=== PATIENT | female | born 1960 | race Caucasian/White ===

== ENCOUNTER 2019-04-17 17:29 | Emergency (ER) | payer BC ==
[2019-04-17 17:51] VITALS: BP 122/52
--- NOTE | 2019-04-17 18:00 | UC ---
Hand/Wrist HPI - HPI Summary HPI Summary: Fell down a few steps approximately one hour ago. Thinks she sort of tumbled down, she did not pass out. She hit her head but had no LOC, no epistaxis. She complains of right elbow and right wrist pain. - History Of Current Complaint Chief Complaint: UCUpperExtremity Stated Complaint: RIGHT WRIST INJURY Time Seen by Provider: 04/17/19 17:46 Hx Obtained From: Patient ?: No Onset/Duration: Sudden Onset Severity Initially: Moderate Severity Currently: Moderate Pain Intensity: 7 Character Of Pain: Sharp, Aching Aggravating Factor(s): Movement, Flexion, Extension Alleviating Factor(s): Nothing Associated Signs And Symptoms: Positive: Negative - Allergies/Home Medications Allergies/Adverse Reactions: Allergies Allergy/AdvReac Type Severity Reaction Status Date / Time morphine Allergy Headache Verified 04/17/19 17:38 Home Medications: Home Medications Aspirin/Acetaminophen/Caffeine [Excedrin Migraine Caplet] 1 each PO PRN [History] Calcium Carbonate [Calcium] 500 mg PO DAILY 04/17/19 [History Confirmed 04/17/19 ] Cyclobenzaprine TAB* [Flexeril 10 MG TAB*] 10 mg PO TID PRN 04/17/19 [History Confirmed 04/17/19] Vitamin E 100 unit PO DAILY 04/17/19 [History Confirmed 04/17/19] PMH/Surg Hx/FS Hx/Imm Hx Previously Healthy: Yes Cardiovascular History: Hypertension Neurological History: Migraine - Surgical History Surgical History: Yes Surgery Procedure, Year, and Place: APPENDECTOMY - 1978. TUBAL LIGATION - 1987. HYSTERECTOMY - 2010. CSP -FUSION - 2005. GALLBLADDER - 2010. LUMBAR SPINAL FUSION, AUG 2018 - Family History Known Family History: Positive: None - Social History Alcohol Use: None Substance Use Type: None Smoking Status (MU): Never Smoked Tobacco - Immunization History Most Recent Tetanus Shot: UNSURE Review of Systems All Other Systems Reviewed And Are Negative: Yes Motor: Positive: Decreased ROM Neurovascular: Positive: Negative Musculoskeletal: Positive: Decreased ROM - Right wrist with pain on felxion/ extension. Is Patient Immunocompromised?: No Physical Exam Triage Information Reviewed: Yes Appearance: Well-Appearing, No Pain Distress, Well-Nourished Vital Signs: Initial Vital Signs Temp 98.4 F 04/17/19 17:43 Pulse 90 04/17/19 17:43 Resp 18 04/17/19 17:43 BP 122/52 04/17/19 17:43 Pulse Ox 100 04/17/19 17:43 Vital Signs Reviewed: Yes Eyes: Positive: Conjunctiva Clear - PERRLA, EOMI ENT: Positive: Hearing grossly normal, Pharynx normal, TMs normal, Uvula midline Neck exam: Normal Neck: Positive: Supple, Nontender, No Lymphadenopathy Respiratory: Positive: Chest non-tender, Lungs clear, Normal breath sounds, No respiratory distress, No accessory muscle use Cardiovascular: Positive: RRR, No Murmur, Pulses Normal, Brisk Capillary Refill Abdomen Description: Positive: Nontender, No Organomegaly, Soft Bowel Sounds: Positive: Present Musculoskeletal: Positive: Other: - Right wrist with pain on lifting and on flexion/extension, mild swelling present. Difficult to see if there is a deformity. Neurological: Positive: Alert, Muscle Tone Normal, Other: - CN II-XII intact, good leg strength and arm strength against resistance. Reflexes +2 at the knee. Psychological Exam: Normal Skin Exam: Normal Hand/Wrist Course/Dx - Course Course Of Treatment: Right elbow: Negative as interpreted by Dr. Beal and myself. Right wrist: Negative as interpreted by Dr. Beal and myself. The cock up splint is applied by the nurse and oog neurosensation, cap refill after splint application. Patient can take Tylenol or Motrin for pain elevate and ice as much as possible to follow-up with an orthopedist if no improvement in 2 or 3 days. She is going to call here tomorrow for results of the x-rays. - Differential Dx/Diagnosis Provider Diagnosis: Contusion of wrist, right, Contusion of head, Contusion of elbow, right Discharge - Sign-Out/Discharge Documenting (check all that apply): Patient Departure All imaging exams completed and their final reports reviewed: No - Discharge Plan Condition: Fair Disposition: HOME Patient Education Materials: Wrist Injury (ED) Referrals: Mi Tejeda MD [Primary Care Provider] - Jhoan Moya MD [Medical Doctor] - Additional Instructions: Elevate as much as possible. We will call you if area and keep the splint on until you call tomorrow or will call you to find the results of the x-ray. Tylenol for pain. Apply ice intermittently over the next 24 hours. - Billing Disposition and Condition Condition: FAIR Disposition: Home
--- NOTE | 2019-04-18 08:49 | UC ---
- Progress Note Progress Note: xray report right elbow : IMPRESSION: NO EVIDENCE FOR FRACTURE. xray report right wrist : IMPRESSION: NO EVIDENCE FOR FRACTURE. IF THE PATIENT' S SYMPTOMS PERSIST RECOMMEND FOLLOW-UP IMAGING. Course/Dx - Diagnoses Provider Diagnoses: Contusion of wrist, right, Contusion of head, Contusion of elbow, right Discharge - Sign-Out/Discharge Documenting (check all that apply): Patient Departure All imaging exams completed and their final reports reviewed: Yes - Discharge Plan Condition: Fair Disposition: HOME Patient Education Materials: Wrist Injury (ED) Referrals: Mi Tejeda MD [Primary Care Provider] - Jhoan Moya MD [Medical Doctor] - Additional Instructions: Elevate as much as possible. We will call you if area and keep the splint on until you call tomorrow or will call you to find the results of the x-ray. Tylenol for pain. Apply ice intermittently over the next 24 hours. - Billing Disposition and Condition Condition: FAIR Disposition: Home
== END 2019-04-17 18:37 | disposition home or self-care (01) ==
LOC: UCCORT 17:29
DX: S60.211A Contusion of right wrist, initial encounter (principal); S00.93XA Contusion of unspecified part of head, initial encounter; S50.01XA Contusion of right elbow, initial encounter; W10.9XXA Fall (on) (from) unspecified stairs and steps, initial encounter
CPT/HCPCS: 99212; G0463